=== PATIENT | female | born 1975 | race African-American/Black ===

== ENCOUNTER 2024-09-06 08:47 | Day surgery (SDC) | payer OTHER ==
[2024-09-02 09:03] VITALS: BMI 28.6
[2024-09-06] MEDS ORDERED: PROPOFOL 40 ML ONE (10:49)
[2024-09-06] MEDS ORDERED: Lidocaine 1% PF 5 ML VIAL ONE (10:49)
[2024-09-06] MEDS ORDERED: PROPOFOL 20 ML ONE (11:16)
== END 2024-09-06 11:59 | disposition home or self-care (01) ==
LOC: CSHSDC 08:47
PROVIDERS: ATTEND Surgery
PROC: 0DJD8ZZ Inspection of Lower Intestinal Tract, Via Natural or Artificial Opening Endoscopic (ICD-10-PCS; principal; 2024-09-06)
DX: Z12.11 Encounter for screening for malignant neoplasm of colon (principal); I10 Essential (primary) hypertension; F41.9 Anxiety disorder, unspecified; Z87.891 Personal history of nicotine dependence; K21.9 Gastro-esophageal reflux disease without esophagitis
CPT/HCPCS: J2704